=== PATIENT | male | born 1995 | race Two or more races ===

== ENCOUNTER 2018-02-01 11:03 | Emergency (ER) | payer MEDICAID, OTHER ==
[~2018-02-01] VITALS: Ht 177.8 cm; Wt 102.1 kg
[2018-02-01 11:11] VITALS: BP 136/80
== END 2018-02-01 12:32 | disposition home or self-care (01) ==
LOC: ER 11:03
DX: S63.91XA Sprain of unspecified part of right wrist and hand, initial encounter (principal); S61.031A Puncture wound without foreign body of right thumb without damage to nail, initial encounter; X50.0XXA Overexertion from strenuous movement or load, initial encounter; Y93.89 Activity, other specified; Y99.8 Other external cause status; Y92.89 Other specified places as the place of occurrence of the external cause
CPT/HCPCS: 73130

== ENCOUNTER 2019-09-15 12:11 | Emergency (ER) | payer MEDICAID ==
[~2019-09-15] VITALS: Ht 177.8 cm; Wt 102.1 kg
[2019-09-15 12:31] VITALS: BP 126/65
[2019-09-15] MEDS ORDERED: KETOROLAC TROMETH 60MG/2ML VIAL IM ONE (13:00)
== END 2019-09-15 13:50 | disposition home or self-care (01) ==
LOC: ER 12:11
DX: M54.42 Lumbago with sciatica, left side (principal)
CPT/HCPCS: 72100; 81002; 96372; 99283; J1885

== ENCOUNTER 2020-09-07 03:25 | Emergency (ER) | payer MEDICAID ==
[~2020-09-07] VITALS: Ht 177.8 cm; Wt 102.1 kg
[2020-09-07 06:45] VITALS: BP 122/73
[2020-09-07] MEDS ORDERED: METHOCARBAMOL 500 MG TAB PO ONE (07:15)
[2020-09-07] MEDS ORDERED: KETOROLAC TROMETH 60MG/2ML VIAL IM ONE (07:15)
== END 2020-09-07 07:35 | disposition home or self-care (01) ==
LOC: ER 03:26
DX: M54.16 Radiculopathy, lumbar region (principal); G89.29 Other chronic pain
CPT/HCPCS: 72131; 81002; 96372; 99284; J1885

== ENCOUNTER 2021-02-08 05:17 | Emergency (ER) | payer MEDICAID ==
[~2021-02-08] VITALS: Ht 177.8 cm; Wt 108.0 kg
[2021-02-08 06:36] VITALS: BP 111/68
[2021-02-08] MEDS ORDERED: TETRACAINE HCL 0.5% OPTH(EYE) SOLN 4ML RIGHTEYE ONE (06:45)
[2021-02-08] MEDS ORDERED: FLUORESCEIN SOD OPTH TEST STRIP RIGHTEYE ONE (06:45)
== END 2021-02-08 07:44 | disposition home or self-care (01) ==
LOC: ER 05:17
DX: H57.89 Other specified disorders of eye and adnexa (principal); H57.11 Ocular pain, right eye; H53.8 Other visual disturbances

== ENCOUNTER 2022-12-19 04:17 | Emergency (ER) | payer MEDICAID, OTHER ==
[~2022-12-19] VITALS: Ht 177.8 cm; Wt 104.0 kg
[2022-12-19 04:17] VITALS: BP 138/72
[2022-12-19] MEDS ORDERED: AZITTAB PO (04:57)
[2022-12-19] MEDS ORDERED: IBUP800T27 PO (04:57)
[2022-12-19] MEDS ORDERED: PRED20TA2 PO (04:57)
[2022-12-19] MEDS ORDERED: methylPREDNISolone SOD SUCC 125 MG/2 ML VL IM ONE (05:00)
[2022-12-19] MEDS ORDERED: cefTRIAXone SOD 1,000 MG VL IM ONE (05:00)
== END 2022-12-19 05:49 | disposition home or self-care (01) ==
LOC: ER 04:17
DX: J02.9 Acute pharyngitis, unspecified (principal); Z20.822 Contact with and (suspected) exposure to COVID-19
CPT/HCPCS: 36415; 87070; 87426; 87804; 87880; 96372; 99284; J0696; J2930